=== PATIENT | male | born 1965 | race Caucasian/White ===

== ENCOUNTER 2016-07-12 22:47 | Emergency (ER) | payer BC ==
[~2016-07-12] VITALS: Ht 165.1 cm; Wt 84.3 kg
[~2016-07-12 22:47] MED LIST: BLOOD PRESSURE MED; DIABETES MED
[2016-07-12] MEDS ORDERED: HYDROcodone/APAP 5/325 TABLET ONE (23:16)
[2016-07-12] MEDS ORDERED: HYDROcodone/APAP 5/325 TABLET PO ONE (23:30)
[2016-07-13 00:49] VITALS: BP 120/84
== END 2016-07-13 00:50 | disposition home or self-care (01) ==
LOC: ED 23:40
DX: S16.1XXA Strain of muscle, fascia and tendon at neck level, initial encounter (principal); H11.32 Conjunctival hemorrhage, left eye; I10 Essential (primary) hypertension; G44.219 Episodic tension-type headache, not intractable; E78.00 Pure hypercholesterolemia, unspecified; E11.9 Type 2 diabetes mellitus without complications; X58.XXXA Exposure to other specified factors, initial encounter; Y93.89 Activity, other specified; Y92.89 Other specified places as the place of occurrence of the external cause; Y99.9 Unspecified external cause status
CPT/HCPCS: 70450; 93005; 99284